=== PATIENT | male | born 1970 | race African-American/Black ===

== ENCOUNTER 2020-10-16 13:40 | Outpatient (CLI) | payer OTHER, SELFPAY ==
[2020-10-16 14:52] LABS: Alanine Aminotransferase 20 U/L (4-50); Albumin Level 4.2 g/dL (3.5-5.1); Alkaline Phosphatase 85 U/L (38-126); Anion Gap 5 mmol/L (8-16); Aspartate Amino Transferase 21 U/L (17-59); Bilirubin,Total 0.4 mg/dL (0.2-1.3); Blood Urea Nitrogen 16 mg/dL (9-20); Calcium 9.1 mg/dL (8.4-10.2); Carbon Dioxide 37 mmol/L (22-30); Chloride 94 mmol/L (98-107); Estimated Glomerular Filt Rate > 60; Glucose 435 mg/dL (75-110); Potassium 3.8 mmol/L (3.4-5.0); Sodium 136 mmol/L (137-145)
== END 2020-10-16 13:41 | disposition home or self-care (01) ==
PROVIDERS: PCP Family Medicine
DX: M96.1 Postlaminectomy syndrome, not elsewhere classified (principal); M50.30 Other cervical disc degeneration, unspecified cervical region; M47.812 Spondylosis without myelopathy or radiculopathy, cervical region; M48.03 Spinal stenosis, cervicothoracic region; M50.20 Other cervical disc displacement, unspecified cervical region; M25.562 Pain in left knee; M51.26 Other intervertebral disc displacement, lumbar region; M54.16 Radiculopathy, lumbar region; M48.02 Spinal stenosis, cervical region
CPT/HCPCS: 36415; 80053

== ENCOUNTER 2021-10-26 16:24 | Emergency (ER) | payer OTHER, SELFPAY ==
[2021-10-26 16:39] VITALS: BP 122/72; PULSE 117; RESP 18; TEMP 37.4; O2SAT 98
--- NOTE | 2021-10-26 16:47 | ED.FALL ---
HPI - Fall General Chief Complaint: Fall Stated Complaint: fell Time Seen by Provider: 10/26/21 16:47 Source: patient, RN notes reviewed and old records reviewed Mode of arrival: ambulatory Limitations: no limitations History of Present Illness HPI Narrative: 50-year-old male presents to the [facility] with complaints of slip and fall, hitting head, amnesia to incident, blurry vision. Patient states that he was at a store when he was walking out and slipped on ice and fell backwards hitting head. States he does not remember the incident, states that the only thing he remembers is someone waking him up and asking if he was okay, helped him to his feet. States the incident occurred about 1300 today. 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 Drove himself to the [facility] with complaints of blurry vision, posterior head pain, neck pain, cervical midline tenderness, right flank and right lateral rib pain. Walks with a slow but normal gait. Denies any numbness or tingling in extremities. No saddle anesthesia. No loss or retention of bowel or bladder. Slow to respond when asked questions but speech is normal. Answers are appropriate. In triage, c-collar applied due to midline tenderness. Reports being out of his pain medication, has an appointment with his pain management doctor next week Related Data Home Medications Medication Instructions Recorded Confirmed amlodipine 08/15/19 atorvastatin 08/15/19 bupropion HCl mg PO 08/15/19 fluoxetine mg 08/15/19 hydrocodone-acetaminophen tablet 08/15/19 hydroxyzine HCl 08/15/19 losartan-hydrochlorothiazide tablet 08/15/19 cyclobenzaprine 10 mg PO HS PRN 10/26/21 10/26/21 empagliflozin [Jardiance] 25 mg PO DAILY 10/26/21 10/26/21 gabapentin 300 mg PO HS 10/26/21 10/26/21 trazodone 100 mg PO BID 10/26/21 10/26/21 Allergies Allergy/AdvReac Type Severity Reaction Status Date / Time No Known Allergies Allergy Unknown Verified 10/26/21 18:57 Review of Systems Review of Systems: All systems reviewed & are unremarkable except as noted in HPI and below Constitutional: Constitutional: Reports no additional constitutional complaints, Denies chills and Denies fever(s) Eyes: Eyes: Reports no additional eye complaints ENT: Reports system reviewed and no additional complaints, except as documented Cardiovascular: Cardiovascular: Reports no additional cardiovascular complaints and Denies chest pain Respiratory: Respiratory: Reports no additional respiratory complaints, Denies cough and Denies dyspnea Gastrointestinal: Gastrointestinal: Reports no additional gastrointestinal complaints, Denies abdominal pain, Denies diarrhea, Denies nausea and Denies vomiting Musculoskeletal: Musculoskeletal: Reports as per HPI, Reports back pain (right ribs and flank), Reports myalgias, Reports neck pain, Denies numbness and Reports stiffness Integumentary/Breasts: Skin/Breast: Reports system reviewed and no additional complaints, except as docu Neurologic: Reports as per HPI, Denies dizziness, Reports headache(s), Denies focal weakness, Denies numbness and Denies weakness Comments: Blurry vision Psychiatric: Psychiatric: Reports no additional psychiatric complaints Allergic/Immunologic: Allergic/Immunologic: Reports no additional allergic/immunologic complaints PMFSH Past Medical History Medical History Anxiety and depression Chronic pain See pain mgt High cholesterol History of high blood pressure Family History Family History Father Family history of elevated blood lipids Family history of diabetes mellitus in first degree relative Other Diabetes mellitus Hypertension Social History Social History Smoking status: Current every day smoker Alcohol intake: never Substance use type: marijuana Gender i
== END 2021-10-26 17:01 | disposition short-term general hospital (02) ==
PROVIDERS: Emergency Provider Nurse Practitioner
DX: R10.9 Unspecified abdominal pain (principal); M54.2 Cervicalgia; R51.9 Headache, unspecified; W00.0XXA Fall on same level due to ice and snow, initial encounter; F17.200 Nicotine dependence, unspecified, uncomplicated; F12.90 Cannabis use, unspecified, uncomplicated; E78.00 Pure hypercholesterolemia, unspecified; I10 Essential (primary) hypertension; F32.A Depression, unspecified
CPT/HCPCS: 99215; G0463; L0140

== ENCOUNTER 2021-10-26 17:23 | Emergency (ER) | payer OTHER, SELFPAY ==
[2021-10-26] VITALS (20 sets, daily range): BP systolic 103–139; BP diastolic 66–123; PULSE 103; RESP 16; TEMP 36.3; O2SAT 97–100
--- NOTE | ~2021-10-26 | CT_ITS ---
EXAMINATION: CT lumbar spine wo [facility] EXAM DATE: 10/26/2021 20:46 INDICATION: Trauma. Back pain. Fall. TECHNIQUE: Spiral CT of the lumbar spine was performed without contrast. Axial, coronal and sagittal images lumbar spine were reviewed. The dose-length product (DLP) for this examination was 447.10 mG y-cm. The exposure was tailored according to patient size (auto mA exposure control), and iterative reconstruction (ASIR) was used as additional dose reduction technique. Correlation is made to x-ray same date. FINDINGS: T10 through sacroiliac joints were imaged. Minimal anterior wedged appearance T10-L1. There are no acute fractures identified. No paraspinal abnormality. Mild to moderate lower lumbar facet arthropathy, mild lumbar disc disease. No spondylolysis. IMPRESSION: No acute lumbar or lower thoracic fracture. Reviewed, dictated and finalized at location . OMER SALES ADVISOR
--- NOTE | ~2021-10-26 | XR_ITS ---
EXAMINATION: XR hip RT 2V w AP pelvis EXAM DATE: 10/26/2021 19:51 INDICATION: Fall, right hip pain, initial encounter. TECHNIQUE: Right hip frontal, 'frog leg' projections for interpretation. Frontal projection pelvis. There is no prior study for comparison. FINDINGS: Smooth right hip femoral head contour, no radiographic evidence of avascular necrosis. The re is mild to moderate symmetric bilateral hip primary osteoarthritis. There are no acute fractures o r dislocations identified. There is no subcutaneous gas. The soft tissue is unremarkable. There a re no radiopaque foreign bodies. IMPRESSION: 1. Pelvis, right hip exam without acute osseous findings. Reviewed, dictated and finalized at location G. CINE TECH
--- NOTE | ~2021-10-26 | XR_ITS ---
EXAMINATION: XR thoracic spine 3V EXAM DATE: 10/26/2021 19:51 INDICATION: Fall Today At 1330 Rt Hip Pain Radiates Low And Up Back. TECHNIQUE: Frontal and lateral projections of the thoracic spine as well as lateral swimmers projecti on of the upper thoracic spine for interpretation. Comparison is made to prior examination from 014. FINDINGS: There are no acute fractures identified. The vertebral bodies are aligned in the AP dimens ion. Vertebral body and disc heights are well-maintained. Mild lower thoracic disc disease. Paraspina l soft tissue is unremarkable. IMPRESSION: No acute Thoracic findings. Reviewed, dictated and finalized at location G. CAL SOCIAL CONSULTANT IMPRESSION: No acute Thoracic findings.
--- NOTE | ~2021-10-26 | CT_ITS ---
EXAMINATION: CT brain wo con, CT cervical spine wo con EXAM DATE: 10/26/2021 19:40 (accession [id number]), 10/26/2021 19:41 (accession [id number]) INDICATION: Trauma, head injury. Fell on ice. TECHNIQUE: Spiral CT of the head was performed without contrast. Axial, coronal and sagittal images were reviewed. Spiral CT of the cervical spine was performed without contrast. Axial images were rev iewed. Coronal and sagittal reformatted images were also reviewed. The dose-length product (DLP) fo r this examination was 605.33 (accession [id number]), 424.31 (accession [id number]) mGy-cm. The exposure was tailored according to patient size, and iterative reconstruction (ASIR) was used as additional dose reduction technique. Comparison is made to prior examination from 01/14/2015. FINDINGS: HEAD CT: There is no acute intraparenchymal hemorrhage. No evidence of intraparenchymal brain mass l esion. No evidence of acute infarction. There is no mass effect or midline shift. There is no obstru ctive hydrocephalus suspected. There are no extra-axial collections. There are no acute calvarial f ractures. The orbits are unremarkable. Left posterior scalp swelling. Mild mucoperiosteal thickenin g. CERVICAL CT: There is mild reversal of the normal cervical lordosis which may be positional or spasm. There is no evidence of acute cervical fracture. The odontoid process is intact. Pre-dens space is normal. Prevertebral soft tissue is normal. There are no soft tissue abnormalities identified. Th ere is no disc space widening or traumatic vertebral body subluxation suspected. Anterior and interb javier fusion C5-7, intact. Moderate disc disease at C4-5. There is severe right neural foraminal stenos is at C5-6, moderate right at C4-5, otherwise only mild to moderate neural foraminal stenosis. A det britt level by level evaluation of spondylosis can be added as addendum if requested. IMPRESSION: 1. No acute intracranial findings or cervical fracture. 2. Reversal of normal cervical lordosis. 3. Intact cervical fusion C5-7. 4. Small left posterior scalp contusion. Reviewed, dictated and finalized at location G. DRY HOUSEKEEPING AIDE IMPRESSION: 1. No acute intracranial findings or cervical fracture. 2. Reversal of normal cervical lordosis. 3. Intact cervical fusion C5-7. 4. Small left posterior scalp contusion.
--- NOTE | ~2021-10-26 | XR_ITS ---
EXAMINATION: XR lumbar spine 2-3V EXAM DATE: 10/26/2021 19:51 INDICATION: Fall Today At 1330 Rt Hip Pain Radiates Low And Up Back TECHNIQUE: Lumber spine frontal, lateral, lateral L5-S1 projections for interpretation. There is no prior study for comparison. FINDINGS: Minimal anteriorly wedged shape to T11, T12 and L1 without acute fracture line identified. Mild lumbar facet arthropathy. Sacrum, sacroiliac joints, sacral arcuate lines are intact. Paraspina l soft tissue is unremarkable. IMPRESSION: Minimal anterior wedge shape T11-L1 without acute fracture line identified. Can't exclud e acute component to one of these. Reviewed, dictated and finalized at location G. UATE FELLOW IMPRESSION: Minimal anterior wedge shape T11-L1 without acute fracture line id entified. Can't exclude acute component to one of these.
[2021-10-26] MEDS: diazePAM INJ (*CRX) 10 MG/2 ML SYRINGE 5 MG IV PUSH (20:05)
[2021-10-26] MEDS: KETOROLAC 30 MG/ML VIAL (*BKC) IV PUSH (20:06)
[2021-10-26 20:10] LABS: Glucose Point of Care 285 mg/dl (65-105)
--- NOTE | 2021-10-26 20:21 | PC.NURSE ---
pt reports he felt like BS low and requesting food. BS checked
--- NOTE | 2021-10-26 20:54 | ED.FALL ---
HPI - Fall General Chief Complaint: Fall Stated Complaint: fall on ice Time Seen by Provider: 10/26/21 19:05 History of Present Illness HPI Narrative: Patient is a 50-year-old male who is referred here from urgent care who presents with body pain status post slip and fall. Patient reports he slipped on some ice falling backwards. He struck his head. Reports he lost consciousness and woke to some by asking him if he is okay. He reports he has aching in his right hip as well as diffusely along his back and neck. Has history of a cervical fusion in the past. Denies upper or lower extremity numbness or tingling. He has been ambulatory since the fall without issue. Denies any alleviating factors. No change in vision or hearing. No nausea or vomiting. No headache. Patient did have a C-spine immobilized. Related Data Home Medications Medication Instructions Recorded Confirmed amlodipine 10 mg PO DAILY 08/15/19 10/26/21 atorvastatin 40 mg PO DAILY 08/15/19 10/26/21 bupropion HCl 150 mg PO DAILY 08/15/19 10/26/21 fluoxetine 20 mg PO DAILY 08/15/19 10/26/21 hydrocodone-acetaminophen 10 tablet PO Q4-6H PRN 08/15/19 10/26/21 hydroxyzine HCl 25 mg PO TID 08/15/19 10/26/21 losartan-hydrochlorothiazide 100 tablet PO DAILY 08/15/19 10/26/21 cyclobenzaprine 10 mg PO HS PRN 10/26/21 10/26/21 empagliflozin [Jardiance] 25 mg PO DAILY 10/26/21 10/26/21 gabapentin 300 mg PO HS 10/26/21 10/26/21 trazodone 100 mg PO BID 10/26/21 10/26/21 Allergies Allergy/AdvReac Type Severity Reaction Status Date / Time No Known Allergies Allergy Unknown Verified 10/26/21 18:57 Review of Systems Review of Systems: All systems reviewed & are unremarkable except as noted in HPI and below Eyes: Eyes: Denies change in vision and Denies photophobia Cardiovascular: Cardiovascular: Denies chest pain, Denies rapid heart rate and Denies radiating jaw, neck or arm pain Respiratory: Respiratory: Denies cough and Denies dyspnea Gastrointestinal: Gastrointestinal: Denies abdominal pain, Denies nausea and Denies vomiting Musculoskeletal: Musculoskeletal: Reports back pain, Reports arthralgias, Denies joint swelling and Reports muscle cramps Neurologic: Reports syncope, Denies headache(s), Denies focal weakness and Denies numbness PMFSH Past Medical History Medical History (Updated 10/26/21 @ 21:47 by Antonoi Flowers MD) Anxiety and depression Chronic pain See pain mgt High cholesterol History of high blood pressure Surgical History Surgical History (Updated 10/26/21 @ 20:56 by Antonio Flowers MD) Hx of fusion of cervical spine Family History Family History Father Family history of elevated blood lipids Family history of diabetes mellitus in first degree relative Other Diabetes mellitus Hypertension Social History Social History Smoking status: Current every day smoker Alcohol intake: never Substance use type: marijuana Gender identity (if verbalized by the patient): Male Exam Narrative: GENERAL: Well-appearing, well-nourished, and in no acute distress. HEAD: Normocephalic, atraumatic. NECK: Supple. C-Spine immobilized. CHEST: Clear to auscultation. No respiratory distress. HEART: Regular rate and rhythm. Normal peripheral pulses. ABDOMEN: Soft, nontender, nondistended. Back: Diffuse tenderness in paraspinal musculature and along the midline of the T and L-spine. No one point that is more tender than the other. No abrasions or contusions. EXTREMITIES: Normal range of motion. No edema. SKIN: Warm, dry, no rash. NEURO: Patient intact with gross palpation of lower and upper extremities. Clear speech without expressive aphasia. No facial droop. Alert and oriented x3. Course Course Emergency Course: Toradol and Valium for pain. Imaging unremarkable. Discharge home. Vital Signs Vital signs: Vital Signs Temperature
== END 2021-10-26 22:36 | disposition home or self-care (01) ==
PROVIDERS: Emergency Provider Emergency Medicine; PCP Physician Assistant
DX: S06.0X9A Concussion with loss of consciousness of unspecified duration, initial encounter (principal); S39.012A Strain of muscle, fascia and tendon of lower back, initial encounter; F41.9 Anxiety disorder, unspecified; F32.A Depression, unspecified; G89.29 Other chronic pain; E78.00 Pure hypercholesterolemia, unspecified; I10 Essential (primary) hypertension; Z98.1 Arthrodesis status; F17.200 Nicotine dependence, unspecified, uncomplicated; Z79.84 Long term (current) use of oral hypoglycemic drugs; W00.0XXA Fall on same level due to ice and snow, initial encounter
CPT/HCPCS: 70450; 72072; 72100; 72125; 72131; 73502; 82948; 96374; 96375; 99284; J1885; J3360

== ENCOUNTER 2022-02-18 11:15 | Outpatient (RCR) | payer OTHER, SELFPAY ==
--- NOTE | 2022-01-21 13:57 | PTOPEVAL ---
PHYSICAL THERAPY EVALUATION AND PLAN OF CARE Thank you for referring Francisco Garcia to [facility].? The patient is scheduled to be seen for therapy? 2x/week for 4 weeks. Please review, sign, date and return this plan of care MIKEL. I agree with and certify that the following plan of care is medically necessary. Referring Physician Date Referring Provider: Danna Walters, PA Diagnosis chronic neck and upper back pain Onset 10/26/21 Subjective Information Patient is here today with Query Text:As Reported By Patient/ worsening neck and upper back Family pain. he does have a history of cervical fusion (C6-7). He fell on some ice on 10/26/21 and fell back on his back and hit his head. He states that he does have previous intermittent chronic pain throughout his body. States he gets some dizziness that occurs when walking, stair climbing. he did get a concussion from the fall. He also gets headaches, 2-3 short headaches a day. States constant pain in left arm and fingers. Self Report Pain Assessment Spine, Cervical Reported Pain Level 8 Pain Description Tightness Pain Score Pain Score 8: Self Report Interventions Used Interventions Used By Clinicians Exercise,Manual Therapy Techniques Pain Relief Interventions Used By Inactivity/Rest Patient Cervical and Lumbar ROM Cervical ROM Cervical Flexion (0-60) 45 Query Text:Active in Degrees Cervical Extension (0-70) 45 Query Text:Active in Degrees Cervical Rotation Right (0-90) 45 Query Text:Active in Degrees Cervical Rotation Left (0-90) 35 Query Text:Active in Degrees Upper Extremity Range of Motion Gross Upper Extremity Range of Motion generally WFL with decreased Comments ROM and end range due to decreased thoracic extension Upper Extremity Muscle Strength Testing Scapular/Shoulder Bilateral Scapular Retraction - Middle Trapezius 3- Fair - Scapular Retraction - Lower Trapezius 3- Fair - Shoulder Flexion Strength 3+ Fair + Shoulder Abduction Strength 3+ Fair + Shoulder Medial Rotation Strength 3+ Fair + Shoulder Lateral Rotation Strength 3+ Fair + Posture Head/C-Spine Posture Neutral Position Thoracic Spine Posture Flattened Lumbar Spine Pos
--- NOTE | 2022-02-20 09:11 | PCPTNOTE ---
Patient called & cancelled scheduled appointment this date due to oversleeping.
--- NOTE | 2022-02-27 15:54 | PCPTNOTE ---
Patient did not show up for scheduled appointment this date.
--- NOTE | 2022-03-19 12:47 | PCPTNOTE ---
Patient called & cancelled scheduled appointment this date due to running late at his doctor's appt.
--- NOTE | 2022-04-01 09:58 | PCPTNOTE ---
Attending Provider: Danna Walters, PA Patient:Francisco Garcia Date of :1970 Patient has not returned for any further treatments since 02/18/2022, therefore he will be discharged at this time. Patient?s initial visit was on 01/21/2022nd had a total of 8visits. The goals have been (met, not met, partially met). Thank you for referring this patient to [facility]. Please review, sign, date and return this discharge summary MIKEL. I have been updated about the patient's current status and I agree with discharge from the above service at this time. Referring Physician Date
== END 2022-04-02 08:15 | disposition home or self-care (01) ==
LOC: ANHPT 11:15
PROVIDERS: PCP Physician Assistant; Referring Provider Physician Assistant; Visit Provider Physician Assistant
DX: G89.29 Other chronic pain (principal)
CPT/HCPCS: 97014; 97110; 97112; 97140; 97162; G0283

== ENCOUNTER 2022-10-15 08:12 | Observation (INO) | payer OTHER, SELFPAY ==
[2022-10-15] VITALS (27 sets, daily range): BP systolic 103–134; BP diastolic 63–83; PULSE 100–112; RESP 13–18; TEMP 36.3–37.1; O2SAT 90–99; BMI 27.3
--- NOTE | 2022-10-15 | ECHO_ITS ---
Patient Info Name: Francisco Garcia Age: 51 years : 1970 Gender: Male Ht: 65 in Wt: 164 lbs BSA: 1.86 m2 HR: 100 bpm BP: 121 / 78 mmHg Heart Rhythm: Sinus Rhythm Exam Date: 10/15/2022 2:40 PM Exam Location: [facility] Patient Status: Outpatient Admit Date: 10/15/2022 Staff Ordering Physician: Ene Morocho PA-C Extracorporeal Circulation Specialist: Navid Quick, MARYLOU, RT Attending Provider: Juan Diego Lai MD Referring Physician: Rashawn BRUNO; Exam Type: CA echo dop color flow w con Study Info Indications R07.9 - Chest pain, unspecified R55 - Syncope and collapse Complete two-dimensional, color flow and Doppler transthoracic echocardiogram is performed with contrast to opacify the left ventricle and to improve the deliniation of the left ventricle endocardial borders. Summary 1. Left ventricular chamber dimension is normal. 2. Left ventricular systolic function is hyperdynamic, estimated at >70%. 3. Right ventricular systolic function is normal. 4. No significant valvular disease. Left Ventricle Left ventricular chamber dimension is normal. Left ventricular systolic function is hyperdynamic, estimated at >70%. Right Ventricle Right ventricular chamber dimension is normal. Right ventricular systolic function is normal. Left Atria Left atrial chamber dimension is normal. Right Atria Right atrial chamber dimension is normal. Atrial Septum Intact interatrial septum visualized by color flow imaging. Aortic Valve The aortic valve is not well visualized. There is no aortic valve stenosis. There is no aortic valve regurgitation. Pulmonic Valve The pulmonic valve is not well visualized. Mitral Valve The mitral valve has normal leaflets. There is no mitral valve stenosis. There is trace mitral valve regurgitation. Tricuspid Valve There is no tricuspid valve regurgitation. Pericardium/Pleural There is no pericardial effusion. Inferior Vena Cava Normal inferior vena cava with <50% collapse upon inspiration consistent with elevated right atrial pressure, 8 mmHg. Aorta The aortic root size at the sinus of Valsalva is normal. Tricuspid Valve Name Value Normal Estimated PAP/RSVP RA Pressure 8 mmHg <=5 Report Signatures
--- NOTE | ~2022-10-15 | CT_ITS ---
EXAMINATION: CT brain wo con DATE: 10/15/2022 09:13 INDICATION: Syncope. TECHNIQUE: Computed tomography (CT) of the head was performed without intravenous contrast. The mA wa s adjusted according to patient size. Iterative reconstruction technique was employed. The dose-lengt h product was 433.36 mGy-cm. COMPARISON: Head CT 10/26/2021 FINDINGS: There is no intracranial hemorrhage, acute infarction, or abnormal intracranial mass lesion . The ventricles are normal in size. There is mild mucosal thickening in the paranasal sinuses. The m astoid air cells are normal. The orbits are normal. There is a left posterior scalp hematoma. IMPRESSION: 1. Normal brain. Reviewed, dictated and finalized at location A. RTMENTAL BUYER IMPRESSION: 1. Normal brain.
--- NOTE | ~2022-10-15 | CT_ITS ---
EXAMINATION: CT sinus wo con DATE: 10/16/2022 13:29 INDICATION: Head injury TECHNIQUE: Computed tomography (CT) of the paranasal sinuses was performed without intravenous contra st. The dose-length product (DLP) was 293.24 mGy-cm. Iterative reconstruction was used. COMPARISON: 10/15/2022 FINDINGS: The right frontal sinus is not pneumatized There is otherwise normal development and pneuma tization of the paranasal sinuses. There is a 2.1 cm polyp or mucous retention cyst of the left maxil olman sinus. There is mild mucosal thickening of the ethmoidal air cells on the right. The frontal, sp henoid, ethmoid, and maxillary sinuses are otherwise clear. The bilateral ostiomeatal complexes are p atent. Visualized soft tissues are unremarkable. No facial fracture is identified. The globes and orb its are normal. IMPRESSION: 1. Mild sinus disease. Reviewed, dictated and finalized at location B. H CUTTING MACHINE OPERATOR IMPRESSION: 1. Mild sinus disease.
--- NOTE | ~2022-10-15 | XR_ITS ---
Clinical Indication: Chest pain PA and lateral views of the chest: Comparison: 09/28/2009 Findings: The lungs are clear, without evidence of focal consolidation or pleural effusion. Cardiome diastinal silhouette is within normal limits. Cervical spine fixation hardware noted. Impression: Clear lungs. Reviewed, dictated and finalized at [facility]. PENDENT CONSULTANT Impression: Clear lungs.
--- NOTE | ~2022-10-15 | CT_ITS ---
EXAMINATION: CT cervical spine wo con DATE: 10/15/2022 09:13 INDICATION: Head injury. TECHNIQUE: Computed tomography (CT) of the cervical spine was performed without intravenous contrast. Automated exposure control and iterative reconstruction technique were employed. The dose-length pro duct was 433.36 mGy-cm. COMPARISON: CT cervical spine 10/26/2021 FINDINGS: There is kyphosis of cervical spine. Vertebral body heights are normal. There are changes o f anterior fusion procedure from C5 to C7 with interbody devices and anterior plate and screws. There is bridging interbody bone at C6-C7, but not at C5-C6. There is moderately decreased disc height at C4-C5 and severely decreased disc height at C7-T1. The following disc levels are specifically discuss ed: C2-C3: There is mild right and severe left uncovertebral joint osteoarthritis. There is severe bilate ral facet joint osteoarthritis. There is mild bilateral neural foraminal stenosis. There is mild cent ral canal stenosis. C3-C4: There is mild bilateral uncovertebral joint osteoarthritis. There is mild bilateral facet join t osteoarthritis. There is no neural foraminal stenosis. There is mild central canal stenosis. C4-C5: There is severe bilateral uncovertebral joint osteoarthritis. There is mild bilateral facet la int osteoarthritis. There is moderate right and mild left neural foraminal stenosis. There is mild ce ntral canal stenosis. C5-C6: There is severe bilateral uncovertebral joint osteoarthritis. There is no facet joint osteoart hritis. There is moderate right neural foraminal stenosis. There is no central canal stenosis. C6-C7: There is mild right and moderate left uncovertebral joint hypertrophy. There is mild bilateral facet joint hypertrophy. There is no neural foraminal stenosis. There is no central canal stenosis. C7-T1: There is mild bilateral uncovertebral joint osteoarthritis. There is severe bilateral facet la int osteoarthritis. There is mild bilateral neural foraminal stenosis. There is no central canal sten osis. IMPRESSION: 1. No fracture. 2. Moderate cervical spondylosis. 3. Anterior fusion procedure from C5 to C7. Reviewed, dictated and finalized at location A. CTOR TREASURER
--- NOTE | 2022-10-15 08:14 | ECG_ITS ---
Measurements Intervals [place] Rate: 110 P: 72 NC: 171 QRS: 18 QRSD: 83 T: 62 QT: 349 QTc: 473 Interpretive Statements SINUS TACHYCARDIA ABNORMAL RHYTHM ECG NO PREVIOUS ECG AVAILABLE FOR COMPARISON Electronically Signed On 10-15-2022 14:50:01 STUD DRIVER by Ricky Desai M.D.
[2022-10-15 08:33] LABS: Basophils Percent Auto 0.6 % (0.2-1.2); Eosinophils Absolute Auto 0.1 K/mm3 (0-0.3); Eosinophils Percent Auto 1.4 % (0-4.4); Hematocrit 43.2 % (42.0-52.0); Hemoglobin 15.1 g/dL (14.0-18.0); Immature Granulocyte Absolute 0.01 K/mm3 (0.00-0.031); Immature Granulocyte Percent A 0.1 % (0-0.5); Lymphocytes Absolute Auto 2.09 K/mm3 (0.9-3.2); Lymphocytes Percent Auto 28.7 % (18.3-44.2); Mean Corpuscular Volume 85.7 fl (80-100); Mean Platelet Volume 9.1 fl (7.4-10.4); Monocytes Absolute Auto 0.6 K/mm3 (0.1-0.6); Monocytes Percent Auto 8.3 % (2.6-8.5); Neutrophils Absolute Auto 4.4 K/mm3 (1.3-6.7); Neutrophils Percent Auto 60.9 % (45.5-73.1); Platelet Count Result 374 k/mm3 (150-375); Red Blood Count 5.04 M/mm3 (4.6-6.20); Red Cell Distribution Width 13.6 % (11.5-14.5); White Blood Count 7.3 K/mm3 (4.5-10.0)
[2022-10-15] MEDS: LACTATED RINGERS 1,000 ML 999 ML IV CONT (08:40)
[2022-10-15 08:47] LABS: Alanine Aminotransferase 37 U/L (6-50); Albumin Level 4.9 g/dL (3.5-5.1); Alkaline Phosphatase 81 U/L (38-126); Anion Gap 21 mmol/L (8-16); Aspartate Amino Transferase 76 U/L (17-59); Bilirubin,Total 0.7 mg/dL (0.2-1.3); Blood Urea Nitrogen 20 mg/dL (9-20); Calcium 9.1 mg/dL (8.4-10.2); Carbon Dioxide 18 mmol/L (22-30); Chloride 87 mmol/L (98-107); Estimated CRCL calculation 52 ml/min; Estimated Glomerular Filt Rate > 60; Glucose 111 mg/dL (65-110); Potassium 2.8 mmol/L (3.4-5.0); Sodium 126 mmol/L (137-145)
[2022-10-15 08:52] LABS: Ethanol 86 mg/dL (<10)
--- NOTE | 2022-10-15 08:54 | ED.SYNCOPE ---
HPI - Syncope General Chief Complaint: Syncope Stated Complaint: syncope Time Seen by Provider: 10/15/22 08:15 History of Present Illness HPI narrative: Per EMS, patient was at the police station when he started stating that he was having chest pain, nausea and vomiting, and then passed out and hit his head. Patient states that last he remembered was feeling nauseous. He states that he has had similar episodes in the past, unsure of anything was ever found for the cause, however he does admit that he had a couple of beers this morning, and that he then felt hungry. Related Data Home Medications Medication Instructions Recorded Confirmed amlodipine 5 mg tablet 10 mg PO DAILY 08/15/19 10/26/21 atorvastatin 40 mg tablet 40 mg PO DAILY 08/15/19 10/26/21 bupropion HCl 150 mg 24 hr tablet, 150 mg PO DAILY 08/15/19 10/26/21 extended release fluoxetine 20 mg capsule 20 mg PO DAILY 08/15/19 10/26/21 hydrocodone 10 mg-acetaminophen 10 tablet PO Q4-6H PRN Pain 08/15/19 10/26/21 325 mg tablet hydroxyzine HCl 25 mg tablet 25 mg PO TID 08/15/19 10/26/21 losartan 100 100 tablet PO DAILY 08/15/19 10/26/21 mg-hydrochlorothiazide 12.5 mg tablet cyclobenzaprine 10 mg tablet 10 mg PO HS PRN Muscle Pain 10/26/21 10/26/21 empagliflozin 25 mg tablet 25 mg PO DAILY 10/26/21 10/26/21 (Jardiance) gabapentin 300 mg capsule 300 mg PO HS 10/26/21 10/26/21 trazodone 100 mg tablet 100 mg PO BID 10/26/21 10/26/21 Allergies Allergy/AdvReac Type Severity Reaction Status Date / Time No Known Allergies Allergy Unknown Verified 10/26/21 18:57 Review of Systems Review of Systems: CONST: No fever. HEENT: Trauma to face C/V: chest pain RESP: No cough GI: Reports abdominal pain, nausea, vomiting : No dysuria. M/S: No joint pain. SKIN: Tiny abrasion to nose NEURO: [No headache or focal numbness or weakness] PSYCH: [No depression] PMFSH Past Medical History Medical History Anxiety and depression Chronic pain See pain mgt High cholesterol History of high blood pressure Surgical History Surgical History Hx of fusion of cervical spine Family History Family History Father Family history of elevated blood lipids Family history of diabetes mellitus in first degree relative Other Diabetes mellitus Hypertension Social History Social History (Updated 10/15/22 @ 08:57 by Camilla De MD) Smoking status: Current every day smoker Alcohol intake: current Substance use type: marijuana Gender identity (if verbalized by the patient): Male Exam Narrative: EXAMINATION OF ORGAN SYSTEMS/BODY AREAS: Constitutional: Vital signs per nursing GENERAL:[No acute distress] HEAD: Tiny abrasion bridge of nose EYES: EOMI, conjunctiva normal ENT: Tiny abrasion to bridge of nose, no pain with movement of jaw LUNGS: Nonlabored breathing. HEART: Tachycardic ABD: [Soft], [nontender to palpation] EXT: Normal range of motion SKIN: Tiny nose abrasion noted NEURO: [Alert and oriented x 3. No gross focal sensory or strength deficits.] PSYCH: Very minimally intoxicated Course Vital Signs Vital signs: Vital Signs Temperature 98.5 F 10/15/22 08:14 Pulse Rate 110 H 10/15/22 08:14 Respiratory Rate 18 10/15/22 08:14 Blood Pressure 123/81 10/15/22 08:14 Pulse Oximetry 99 10/15/22 08:14 Oxygen Delivery Room Air 10/15/22 08:14 Temperature 98.5 F 10/15/22 08:14 Pulse Rate 105 H 10/15/22 09:15 Respiratory Rate 18 10/15/22 09:15 Blood Pressure 116/76 10/15/22 08:45 Pulse Oximetry 93 10/15/22 09:15 Oxygen Delivery Room Air 10/15/22 08:14 MDM - Syncope MDM Narrative Medical decision making narrative: 51-year-old male presenting after syncopal episode with fall, vital signs notable for mild tachycardia, on exam he has a small abrasion to the bridg
[2022-10-15 09:06] LABS: Magnesium 1.9 mg/dL (1.6-2.3)
[2022-10-15 09:19] LABS: Troponin I < 0.012 ng/mL (0.000-0.034)
[2022-10-15] MEDS: POTASSIUM CHLORIDE 20 MEQ PACKET (FOR LIQUID) 40 MEQ PO (09:22)
[2022-10-15] MEDS: SODIUM CHLORIDE 0.9% IV 1,000 ML 100 ML IV CONT (09:56)
[2022-10-15] MEDS: POTASSIUM CHLORIDE INJ 40 MEQ in SODIUM CHLORIDE 0.9% IV 500 ML 130 MEQ IVPB (09:56)
--- NOTE | 2022-10-15 10:05 | PC.NURSE ---
Potassium drip slowed down to decrease burning at insertion site.
[2022-10-15 10:10] LABS: Influenza A QL RT-PCR Negative (Negative); Influenza B QL RT-PCR Negative (Negative); SARS-CoV-2 RNA PCR Negative
--- NOTE | 2022-10-15 10:36 | PC.NURSE ---
[facility]BO DR AMADO TYLENOL 1GM PO
[2022-10-15] MEDS: ACETAMINOPHEN 500 MG TABLET 1000 MG PO (10:43)
[2022-10-15 11:29] LABS: D Dimer < 0.27 ug/mL (<0.48)
--- NOTE | 2022-10-15 11:49 | PM.IMHP ---
H&P: HPI History of Present Illness Date/Time: 10/15/22 11:49 Chief Complaint: Syncope Narrative: Date of service: 10/15/2022 Francisco Garcia is a 51-year-old male with a history of type 2 diabetes mellitus, hypertension, hyperlipidemia, anxiety, depression, and chronic alcohol use who presented to department on 10/15/2022 from [facility] police station after a syncopal episode. The patient states that this morning around 7:30 a.m. he woke up and was making breakfast and feeling in his usual state of health. He states he was having no issues but states that his neighbor was upset that he was ?walking too hard? and called the police. The patient was taken to the police station and was paying his marshall to be released when he developed nausea, subsequently throughout, and then ?blacked out.? He is not sure what happened but he came to immediately and recalls being held up by a police department secretary. He believes that he fell forward and hit his head because his nose is hurting and he has a small abrasion on the bridge of his nose. He also states that his lip feels swollen. He reports he had 1 additional episode of emesis after this and then was taken to the ED for evaluation. Upon presentation to the ED, his heart rate was 110, BP 123/81, additional vital signs were stable, CBC unremarkable, sodium 126, potassium 2.8, chloride 87, CO2 18, blood sugar 111, mag 1.9, alcohol level 86, troponin negative, EKG showed sinus tachycardia, head CT showed normal brain, and cervical spine CT showed no acute findings. At the time of my evaluation, the patient states that he is feeling better. He does endorse facial pain, pain in his upper back and neck which all occurred after his syncopal episode. He endorses chest pressure and feels that his chest is ?hard.? States that pain has radiated to his back and shoulder but this pain has resolved after receiving Tylenol. Patient stating that his pain is worse if he moves his arm and occasionally noticeable if he takes a deep breath. He feels that his heart has been racing intermittently. He felt dizzy today when ambulating to the bathroom. He denies any recent urinary symptoms. He has not had diarrhea. Reports that he has been eating and drinking well and does not feel that is dehydrated. He endorses drinking two 24 oz beers last night around 11:30 p.m. last night. He did not feel intoxicated today. He does endorse increased stress recently due to difficulty with his neighbors. Reports his blood sugars have been well controlled and he just had an appointment with his PCP yesterday. Review of Systems Review of Systems: All systems reviewed & are unremarkable except as noted in HPI and below PMFSH Past Medical History Medical History (Updated 10/15/22 @ 11:51 by Ene Morocho PA-C) Anxiety and depression Chronic pain Due to history of cervical spine fusion, previously seeing pain management High cholesterol History of high blood pressure Type 2 diabetes mellitus Surgical History Surgical History (Updated 10/15/22 @ 12:43 by Ene Morocho PA-C) History of appendectomy Hx of fusion of cervical spine Family History Family History Father Family history of elevated blood lipids Family history of diabetes mellitus in first degree relative Grandparent Cerebrovascular accident Other Diabetes mellitus Hypertension Social History Social History (Updated 10/15/22 @ 12:51 by Ene Morocho PA-C) Social History: Patient lives at home. He is independent with his daily activities. He designates his son, Joaquin, as his surrogate decision maker. He is a full code. His PCP is Danna De La Cruz PA-C Smoking packs per day: 0.25 Smoking cigarettes per day: 5.0 Smoking status: Current every day smoker Alcohol intake: current Drinks per week: 28 Alcohol use details: Two 24 oz beers every 2 days Substance use: never Substance
--- NOTE | 2022-10-15 11:55 | ADMGEN ---
This patient, Francisco Garcia, was admitted to [facility] Surg Room 315-01. Patient/family oriented to hospital policies and general routines including ID bracelet, bed and alarms, visiting hours, pain management, procedures, bathroom and other care routines, personal items, smoking policy, room service/diet, and visiting hours. Information on how to activate the Rapid Response Team has been discussed. Patient/Family are encouraged to report perceived risks to care and to ask questions if they do not understand what they are told or what they should do.
[2022-10-15 12:00] LABS: Troponin I < 0.012 ng/mL (0.000-0.034)
[2022-10-15 12:07] LABS: Lipase 95 U/L (23-300)
[2022-10-15 13:52] LABS: Thyroid Stimulating Hormone Reflex 0.465 uIU/mL (0.465-4.68)
[2022-10-15 14:26] LABS: Lactic Acid Reflex 1.4 mmol/L (0.7-2.0)
[2022-10-15] MEDS: PERFLUTREN LIPID MICROSPHERES 1.5 ML VIAL DILUTED TO 10 ML TOTAL VOLUME IV PUSH (14:58)
--- NOTE | 2022-10-15 14:58 | IVDEFINITY ---
Prior to administration of IV Definity the patient was educated on the risks and benefits of the imaging enhancing agent including potential adverse side effects. The patient verbalized understanding. Allergies were verified. No exclusion criteria were identified and at least one of the following inclusion criteria were met: 1) physician request, 2) patient technically difficult to image (per the [place] [employer] guidelines of two or more segments not discernable within the apical view), or 3) questionable left ventricular function. ?
[2022-10-15] MEDS: FOLIC ACID 1 MG TABLET PO (15:07)
[2022-10-15] MEDS: THIAMINE HCL 100 MG TABLET PO (15:07)
[2022-10-15] MEDS: PANTOPRAZOLE 40 MG TABLET PO (15:08)
[2022-10-15] MEDS: LACTATED RINGERS 1,000 ML 75 ML IV CONT (15:09)
[2022-10-15 15:48] LABS: Sodium 128 mmol/L (137-145)
[2022-10-15 16:35] LABS: Glucose Point of Care 113 mg/dl (65-105)
[2022-10-15] MEDS: HYDROcodone/acetaminophen (*CRX) 5-325 MG TABLET 1 TAB PO (17:38)
[2022-10-15 18:34] LABS: Hemoglobin A1C 7.7 % (<5.7)
[2022-10-15] MEDS: NAPROXEN SODIUM 220 MG TABLET PO (21:33)
[2022-10-15 21:45] LABS: Glucose Point of Care 160 mg/dl (65-105)
[2022-10-15] MEDS: traZODone HCL 50 MG TABLET 100 MG PO (23:13)
[2022-10-16] VITALS (12 sets, daily range): BP systolic 98–122; BP diastolic 63–83; PULSE 71–110; RESP 16–18; TEMP 35.7–36.6; O2SAT 93–98
[2022-10-16] MEDS: HYDROcodone/acetaminophen (*CRX) 5-325 MG TABLET 1 TAB PO ×2 (04:11→09:59)
[2022-10-16 06:00] LABS: Hematocrit 41.4 % (42.0-52.0); Hemoglobin 14.2 g/dL (14.0-18.0); Mean Corpuscular HGB Conc 34.3 g/dl (32-36); Mean Corpuscular Hemoglobin 29.5 pg (26-34); Mean Corpuscular Volume 86.1 fl (80-100); Mean Platelet Volume 9.1 fl (7.4-10.4); Platelet Count Result 373 k/mm3 (150-375); Red Blood Count 4.81 M/mm3 (4.6-6.20); Red Cell Distribution Width 13.2 % (11.5-14.5)
[2022-10-16 06:11] LABS: Anion Gap 12 mmol/L (8-16); Blood Urea Nitrogen 15 mg/dL (9-20); Carbon Dioxide 26 mmol/L (22-30); Chloride 97 mmol/L (98-107); Estimated CRCL calculation 61 ml/min; Estimated Glomerular Filt Rate > 60; Glucose 92 mg/dL (65-110); Magnesium 2.1 mg/dL (1.6-2.3); Potassium 3.3 mmol/L (3.4-5.0); Sodium 135 mmol/L (137-145)
[2022-10-16] MEDS: amLODIPine BESYLATE 5 MG TABLET 10 MG PO (08:32)
[2022-10-16] MEDS: PANTOPRAZOLE 40 MG TABLET PO (08:33)
[2022-10-16] MEDS: EMPAGLIFLOZIN 25 MG TABLET PO (08:33)
[2022-10-16] MEDS: ATORVASTATIN 40 MG TABLET PO (08:33)
[2022-10-16] MEDS: THIAMINE HCL 100 MG TABLET PO (08:33)
[2022-10-16] MEDS: FOLIC ACID 1 MG TABLET PO (08:33)
[2022-10-16] MEDS: buPROPion HCL XL (24 HR) 150 MG TABCR 450 MG PO (08:33)
[2022-10-16 08:41] LABS: Glucose Point of Care 97 mg/dl (65-105)
[2022-10-16] MEDS: POTASSIUM CHLORIDE 20 MEQ TABLET 40 MEQ PO (09:59)
[2022-10-16 12:17] LABS: Glucose Point of Care 201 mg/dl (65-105)
[2022-10-16] MEDS: INSULIN ASPART (*BKC) 100 UNITS/ML SUB-Q (12:35)
--- NOTE | 2022-10-16 15:28 | P.PNIM_ITS ---
Progress Note: A&P Assessment and Plan (1) Syncope: Code(s): R55 - Syncope and collapse Status: Acute Assessment and Plan: Patient reports episode of ?blacking out? in which he fell face forward to the ground and hit his head. Episode occurred at police station and was witnessed by police staff. * Etiology unclear. Vasovagal etiology is most likely. * May have been secondary to intoxication and electrolyte abnormalities. * Less likely consideration is seizure. Patient with no postictal period following episode * Head CT and cervical spine CT with no acute findings * EKG reviewed and patient is in sinus tachycardia. No obvious abnormalities on manager telemetry. Continue to monitor on telemetry * Consider outpatient manager telemetry. No arrhythmia on telemetry. * Echo shows no LV systolic or diastolic dysfunction. * Continue with rehydration - give additional 1 liter NS fluids. * Implement fall precautions * orthostatics negative however BP soft and patient appears to be on both Losartan/HCTZ and chlorthalidone medications that can worsening hyponatremia and dehydration. * TSH within normal limits. * No focal deficits to suggest ischemic stroke. * CT sinus with mild sinus disease and no facial fractures. (2) Alcohol abuse: Code(s): F10.10 - Alcohol abuse, uncomplicated Status: Acute Assessment and Plan: Patient reports drinking in two 24 oz beers every 2-3 days in states that he had two 24 oz beers last night around 10:00 p.m.. His alcohol level was 86 on presentation at 8:30 a.m. suspect that actual intake may be more than reported * continue CIWA protocol * Ativan as needed for CIWA >8. Monitor for withdrawal. * started on oral thiamine and folic acid supplementation (3) Chest pain: Code(s): R07.9 - Chest pain, unspecified Status: Acute Assessment and Plan: Patient with atypical chest pain presentation with onset following syncopal episode. Patient describes a chest pressure that radiates to the back and shoulder and occasionally worse is with moving his arm. He had associated nausea, vomiting, and sensation of heart racing. * Troponin negative x2. Repeat pending in 3 hours * EKG demonstrates sinus tachycardia with no additional abnormalities. No ST changes * ACS is less likely based on overall symptoms * D-dimer is negative * Blood pressures are stable * CXR negative. * Continue to monitor on telemetry * echocardiogram as below. * Resolved. likely musculoskeletal. (4) Nausea and vomiting: Code(s): R11.2 - Nausea with vomiting, unspecified Status: Acute Assessment and Plan: Patient with episode of emesis followed by syncope. Patient had a 2nd episode of emesis after he came to * May be related to alcohol intoxication * Symptoms have resolved at this time * lipase not elevated. * Continue with IV fluid rehydration * [place] diet (5) Electrolyte abnormality: Code(s): E87.8 - Other disorders of electrolyte and fluid balance, not elsewhere classified Status: Acute Assessment and Plan: * Hyponatremia: Sodium is 126. Last labs for comparison were 2 years ago. Suspect acute on chronic issue due to frequent beer intake worsened by nausea/vomiting. Continue with IV fluid rehydration. Repeat sodium 135 (from 128 yesterday afternoon). * Hypokalemia: Potassium is 2.8. received 40 mEq IV KCl on admission. K 3.3 today and given additional 60 mEQ PO. Hold HCTZ and chlorothalidone. * Hypochloremia: Chloride 87. Continue with IV fluid rehydration * Metabolic acidosis: Bicarb is 18 on adm
--- NOTE | 2022-10-16 15:28 | PM.IMPN ---
Progress Note: A&P Assessment and Plan (1) Syncope: Code(s): R55 - Syncope and collapse Status: Acute Assessment and Plan: Patient reports episode of ?blacking out? in which he fell face forward to the ground and hit his head. Episode occurred at police station and was witnessed by police staff. Etiology unclear. Vasovagal etiology is most likely. May have been secondary to intoxication and electrolyte abnormalities. Less likely consideration is seizure. Patient with no postictal period following episode Head CT and cervical spine CT with no acute findings EKG reviewed and patient is in sinus tachycardia. No obvious abnormalities on electronic device monitor. Continue to monitor on telemetry Consider outpatient electronic device monitor. No arrhythmia on telemetry. Echo shows no LV systolic or diastolic dysfunction. Continue with rehydration - give additional 1 liter NS fluids. Implement fall precautions orthostatics negative however BP soft and patient appears to be on both Losartan/HCTZ and chlorthalidone medications that can worsening hyponatremia and dehydration. TSH within normal limits. No focal deficits to suggest ischemic stroke. CT sinus with mild sinus disease and no facial fractures. (2) Alcohol abuse: Code(s): F10.10 - Alcohol abuse, uncomplicated Status: Acute Assessment and Plan: Patient reports drinking in two 24 oz beers every 2-3 days in states that he had two 24 oz beers last night around 10:00 p.m.. His alcohol level was 86 on presentation at 8:30 a.m. suspect that actual intake may be more than reported continue CIWA protocol Ativan as needed for CIWA >8. Monitor for withdrawal. started on oral thiamine and folic acid supplementation (3) Chest pain: Code(s): R07.9 - Chest pain, unspecified Status: Acute Assessment and Plan: Patient with atypical chest pain presentation with onset following syncopal episode. Patient describes a chest pressure that radiates to the back and shoulder and occasionally worse is with moving his arm. He had associated nausea, vomiting, and sensation of heart racing. Troponin negative x2. Repeat pending in 3 hours EKG demonstrates sinus tachycardia with no additional abnormalities. No ST changes ACS is less likely based on overall symptoms D-dimer is negative Blood pressures are stable CXR negative. Continue to monitor on telemetry echocardiogram as below. Resolved. likely musculoskeletal. (4) Nausea and vomiting: Code(s): R11.2 - Nausea with vomiting, unspecified Status: Acute Assessment and Plan: Patient with episode of emesis followed by syncope. Patient had a 2nd episode of emesis after he came to May be related to alcohol intoxication Symptoms have resolved at this time lipase not elevated. Continue with IV fluid rehydration [place] diet (5) Electrolyte abnormality: Code(s): E87.8 - Other disorders of electrolyte and fluid balance, not elsewhere classified Status: Acute Assessment and Plan: Hyponatremia: Sodium is 126. Last labs for comparison were 2 years ago. Suspect acute on chronic issue due to frequent beer intake worsened by nausea/vomiting. Continue with IV fluid rehydration. Repeat sodium 135 (from 128 yesterday afternoon). Hypokalemia: Potassium is 2.8. received 40 mEq IV KCl on admission. K 3.3 today and given additional 60 mEQ PO. Hold HCTZ and chlorothalidone. Hypochloremia: Chloride 87. Continue with IV fluid rehydration Metabolic acidosis: Bicarb is 18 on admission. Stable now. Elevated anion gap: Anion gap is 21. Most likely related to alcohol. Resolved with hydration. (6) Type 2 diabetes mellitus: Code(s): E11.9 - Type 2 diabetes mellitus without complications Status: Acute Assessment and Plan: Patient reports last A1c was around 8. Random blood sugar was 110 today Begin Accu-Cheks, sliding scale insu
[2022-10-16] MEDS: SODIUM CHLORIDE 0.9% IV 1,000 ML 75 ML IV CONT (15:50)
[2022-10-16 16:41] LABS: Glucose Point of Care 188 mg/dl (65-105)
[2022-10-16] MEDS: ACETAMINOPHEN 325 MG TABLET 650 MG PO ×2 (16:41→20:33)
[2022-10-16] MEDS: traZODone HCL 50 MG TABLET 100 MG PO (20:33)
[2022-10-16 21:54] LABS: Glucose Point of Care 265 mg/dl (65-105)
[2022-10-17] VITALS: PULSE 99
[2022-10-17] MEDS: ACETAMINOPHEN 325 MG TABLET 650 MG PO (00:44)
[2022-10-17 03:52] VITALS: BP 105/64; PULSE 90; RESP 18; TEMP 36.3; O2SAT 98
[2022-10-17 04:00] VITALS: PULSE 89
[2022-10-17 06:19] LABS: Alanine Aminotransferase 29 U/L (6-50); Albumin Level 4.2 g/dL (3.5-5.1); Alkaline Phosphatase 68 U/L (38-126); Anion Gap 7 mmol/L (8-16); Aspartate Amino Transferase 32 U/L (17-59); Blood Urea Nitrogen 12 mg/dL (9-20); Calcium 8.7 mg/dL (8.4-10.2); Carbon Dioxide 30 mmol/L (22-30); Chloride 102 mmol/L (98-107); Estimated CRCL calculation 67 ml/min; Estimated Glomerular Filt Rate > 60; Glucose 143 mg/dL (65-110); Potassium 3.5 mmol/L (3.4-5.0); Sodium 139 mmol/L (137-145)
[2022-10-17 08:00] VITALS: PULSE 104
[2022-10-17] MEDS: HYDROcodone/acetaminophen (*CRX) 5-325 MG TABLET 1 TAB PO (08:09)
[2022-10-17 08:43] LABS: Glucose Point of Care 141 mg/dl (65-105)
[2022-10-17] MEDS: EMPAGLIFLOZIN 25 MG TABLET PO (08:51)
[2022-10-17] MEDS: ATORVASTATIN 40 MG TABLET PO (08:51)
[2022-10-17] MEDS: THIAMINE HCL 100 MG TABLET PO (08:51)
[2022-10-17] MEDS: FOLIC ACID 1 MG TABLET PO (08:51)
[2022-10-17] MEDS: buPROPion HCL XL (24 HR) 150 MG TABCR 450 MG PO (08:51)
[2022-10-17] MEDS: PANTOPRAZOLE 40 MG TABLET PO (08:51)
--- NOTE | 2022-10-17 09:57 | PM.DS ---
DS: Admitting Diagnosis Discharge Date 10/17/2022 0957 Admitting Diagnosis Syncope and collapse Alcohol abuse, uncomplicated Chest pain, unspecified Nausea with vomiting, unspecified Electrolyte abnormality Type 2 diabetes mellitus without complications DS: Discharge Diagnosis Discharge Diagnosis (1) Syncope: Code(s): R55 - Syncope and collapse Status: Acute (2) Alcohol abuse: Code(s): F10.10 - Alcohol abuse, uncomplicated Status: Acute (3) Chest pain: Qualifiers: Chest pain type: precordial pain Qualified Code(s): R07.2 - Precordial pain Code(s): R07.9 - Chest pain, unspecified Status: Acute (4) Nausea and vomiting: Qualifiers: Vomiting type: bilious vomiting Qualified Code(s): R11.14 - Bilious vomiting Code(s): R11.2 - Nausea with vomiting, unspecified Status: Acute (5) Type 2 diabetes mellitus: Code(s): E11.9 - Type 2 diabetes mellitus without complications Status: Chronic (6) Dizziness: Code(s): R42 - Dizziness and giddiness Status: Acute (7) Hyponatremia: Code(s): E87.1 - Hypo-osmolality and hyponatremia Status: Acute (8) Hypokalemia: Code(s): E87.6 - Hypokalemia Status: Acute (9) Chronic pain: Code(s): G89.29 - Other chronic pain Status: Acute DS: Summary Hospital Course Reason for hospitalization: syncope Hospital Course: Francisco Garcia is a 51-year-old male with a history of type 2 diabetes mellitus, hypertension, hyperlipidemia, anxiety, depression, and chronic alcohol use who presented to the emergency department on 10/15/2022 from [facility] police station after a syncopal episode.?He was found to have hypokalemia, hyponatremia and he c/o chest pain in the ED. He was admitted for further evaluation and electrolyte replacement. He endorsed pain to his left frontal and nasal bridge pain. He thought this was secondary to hitting his head during his syncopal episode. 1. Syncope Patient reports episode of ?blacking out? in which he fell face forward to the ground and hit his head.? Episode occurred at police station and was witnessed by police staff. Etiology unclear.? Vasovagal versus orthostatic hypotension etiology is most likely.?May have been secondary to intoxication and electrolyte abnormalities. Less likely consideration is seizure.? Patient with no postictal period following episode Head CT and cervical spine CT with no acute findings EKG reviewed and patient is in sinus tachycardia.? No obvious abnormalities on property assessment monitor.? telemetry without ectopy or arrhythmia Echo shows no LV systolic or diastolic dysfunction. Hydrated with IV fluids. Implement fall precautions ?orthostatics negative however BP soft and patient appears to be on both Losartan/HCTZ and chlorthalidone medications that can worsening hyponatremia and dehydration. TSH within normal limits. No focal deficits to suggest ischemic stroke. CT sinus with mild sinus disease and no facial fractures. Stopped Losartan/HCTZ and chlorthalidone on discharge due to BP. Amlodipine continued. 2. Alcohol abuse. Patient reports drinking in two 24 oz beers every 2-3 days in states that he had two 24 oz beers last night around 10:00 p.m..? His alcohol level was 86 on presentation at 8:30 a.m. suspect that actual intake may be more than reported continue CIWA protocol Ativan as needed for CIWA >8. Monitor for withdrawal. started on oral thiamine and folic acid supplementation 3. Chest pain, noncardiac: Patient with atypical chest pain presentation with onset following syncopal episode.? Patient describes a chest pressure that radiates to the back and shoulder and occasionally worse is with moving his arm.? He had associated nausea, vomiting, and sensation of heart racing. Troponin negative x2.? Repeat pending in 3 hours EKG demonstrates sinus tachycardia with no additional abnormalities.? No ST
[2022-10-17 12:46] LABS: Glucose Point of Care 212 mg/dl (65-105)
== END 2022-10-17 15:00 | disposition home or self-care (01) ==
LOC: ANHED 09:55 → ANH3MEDSUR 12:10
PROVIDERS: Nurse Practitioner Family; Physician Assistant; Admitting Provider Family Medicine; Emergency Provider Emergency Medicine; PCP Physician Assistant; Visit Provider Student in an Organized Health Care Education/Training Program
DX: R55 Syncope and collapse (principal); R07.9 Chest pain, unspecified; S00.31XA Abrasion of nose, initial encounter; W19.XXXA Unspecified fall, initial encounter; R11.2 Nausea with vomiting, unspecified; F41.9 Anxiety disorder, unspecified; F32.A Depression, unspecified; E78.5 Hyperlipidemia, unspecified; Z20.822 Contact with and (suspected) exposure to COVID-19; I10 Essential (primary) hypertension; R00.0 Tachycardia, unspecified; E87.1 Hypo-osmolality and hyponatremia; E66.9 Obesity, unspecified; Z68.27 Body mass index [BMI] 27.0-27.9, adult; R94.31 Abnormal electrocardiogram [ECG] [EKG]; M47.812 Spondylosis without myelopathy or radiculopathy, cervical region; M43.22 Fusion of spine, cervical region; F17.210 Nicotine dependence, cigarettes, uncomplicated; F10.129 Alcohol abuse with intoxication, unspecified; Y90.4 Blood alcohol level of 80-99 mg/100 ml; F12.90 Cannabis use, unspecified, uncomplicated; Z79.899 Other long term (current) drug therapy
CPT/HCPCS: 36415; 70450; 70486; 71046; 72125; 80048; 80053; 80307; 82948; 83036; 83605; 83690; 83735; 84295; 84443; 84484; 85025; 85027; 85380; 87636; 93005; 96361; 96365; 96366; 96375; 99285; A9270; C8929; G0378; G0379; J1815; J3480; J7030; J7040; J7120; Q9957

== ENCOUNTER 2024-05-12 10:48 | Outpatient (CLI) | payer OTHER, SELFPAY ==
--- NOTE | ~2024-05-12 | XR_ITS ---
XR shoulder LT min 2V 05/12/2024 11:09 Indication: Left shoulder pain Procedure: 7 views left shoulder Comparison: 01/18/2015 Findings: There is a small ossific density lateral to the acromion, suspicious for avulsion fracture, age indeterminate. There is mild polyarticular osteoarthritis of the shoulder. No significant soft t issue abnormality. No foreign bodies. Impression: 1: Age-indeterminate avulsion fracture lateral margin of the acromion. 2: Mild polyarticular osteoarthritis. Reviewed, dictated and finalized at location B. Impression: 1: Age-indeterminate avulsion fracture lateral margin of the acromion. 2: Mild polyarticular osteoarthritis.
== END 2024-05-12 10:49 | disposition home or self-care (01) ==
PROVIDERS: PCP Physician Assistant; Visit Provider Physician Assistant
DX: M19.012 Primary osteoarthritis, left shoulder (principal)
CPT/HCPCS: 73030

== ENCOUNTER 2024-05-15 14:39 | Emergency (ER) | payer OTHER, SELFPAY ==
[2024-05-15 14:50] VITALS: BP 143/72; PULSE 100; RESP 16; TEMP 37.2; O2SAT 98
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
== END 2024-05-15 15:12 | disposition home or self-care (01) ==
PROVIDERS: Emergency Provider Nurse Practitioner Family; PCP Physician Assistant
DX: S42.122A Displaced fracture of acromial process, left shoulder, initial encounter for closed fracture (principal); V49.9XXA Car occupant (driver) (passenger) injured in unspecified traffic accident, initial encounter; E78.00 Pure hypercholesterolemia, unspecified; I10 Essential (primary) hypertension; E11.9 Type 2 diabetes mellitus without complications; F41.9 Anxiety disorder, unspecified; F32.A Depression, unspecified; F17.210 Nicotine dependence, cigarettes, uncomplicated
CPT/HCPCS: 99213; G0463

== ENCOUNTER 2024-05-26 11:49 | Outpatient (CLI) | payer OTHER, SELFPAY ==
--- NOTE | ~2024-05-26 | MR_ITS ---
EXAMINATION: MR shoulder LT wo con DATE: 05/26/2024 12:40 INDICATION: Left shoulder pain TECHNIQUE: Magnetic resonance imaging (MRI) of the left shoulder was performed without intravenous co ntrast. Sequences included axial PD-weighted FS FSE, coronal oblique PD-weighted FS FSE, coronal obli que T2-weighted FS FSE, sagittal PD-weighted FS FSE, and sagittal T1-weighted SE. COMPARISON: None. FINDINGS: Coracoacromial arch: The acromion undersurface is curved in morphology (type II). The coracoacromial ligament is normal. M ild acromioclavicular osteoarthritis. Rotator cuff: The supraspinatus, infraspinatus and teres minor tendons are normal. The subscapularis tendon is norm al. Normal rotator cuff muscle bulk and signal. Biceps tendon, glenoid labrum and glenohumeral cartilage: Long head of the biceps tendon is normal. There is a superior, anterior to posterior tear of the leslye oid labrum (SLAP tear) at the superior glenoid labrum beginning anteriorly at the 12:30 position exte nding posterior to the 11:00 position. Glenohumeral cartilage is normal. Fluid: Mild synovitis and of mild increased fluid in the long head biceps tendon sheath which is disproporti natalie to the physiologic amount fluid in the glenohumeral joint space consistent with mild bicipital tenosynovitis. No loose osteochondral bodies. No abnormal fluid signal in the subacromial/subdeltoid bursa to suggest bursitis. Bones: Indeterminate 8 mm intermediate signal intensity lesion at the junction of the acromion and the scapu lar spine. Otherwise normal marrow signal with no fracture. IMPRESSION: 1. Indeterminate 8 mm lesion at the junction of the acromion and scapular spine. No evident correlate on the radiographs for which differential would include both benign lesions as well as metastatic di sease. Consider whole body bone scan and left shoulder CT for further evaluation. 2. SLAP tear at the superior glenoid labrum. 3. Mild bicipital tenosynovitis. Reviewed, dictated and finalized at location B. IMPRESSION: 1. Indeterminate 8 mm lesion at the junction of the acromion and scapular spine . No evident correlate on the radiographs for which differential would include both benign lesions as well as metastatic disease. Consider whole body bone sca n and left shoulder CT for further evaluation. 2. SLAP tear at the superior glenoid labrum. 3. Mild bicipital tenosynovitis.
== END 2024-05-26 11:50 | disposition home or self-care (01) ==
PROVIDERS: PCP Physician Assistant; Visit Provider Physician Assistant
DX: M75.102 Unspecified rotator cuff tear or rupture of left shoulder, not specified as traumatic (principal); M75.22 Bicipital tendinitis, left shoulder
CPT/HCPCS: 73221

== ENCOUNTER 2024-06-16 14:50 | Outpatient (CLI) | payer OTHER, SELFPAY ==
--- NOTE | ~2024-06-16 | CT_ITS ---
CT scan of the left shoulder CLINICAL HISTORY: Other specified disorder of bone TECHNIQUE: Following intravenous administration of 100 cc of Omnipaque 350 contrast material, axial i maging of the left shoulder was performed. Sagittal and coronal reformatted images were constructed. Dose reduction technique was used on this scan by utilizing automated exposure control and iterative reconstruction technique. The dose-length product (DLP) was 416.33 mGy-cm. Comparison made with MRI dated 05/26/2024 Findings: At the junction of the scapular spine and acromion, there is a 7 mm circumscribed lytic les ion (series 3 image 26, series 601 image 70), with narrow zone of transition and thin sclerotic katie n. No abscess or soft tissue mass or periosteal reaction. Suggestion of a faint central hyperdensity within the lesion. There is mild AC joint degenerative change. Glenohumeral joint intact. No joint effusion evident. Visualized musculature is unremarkable. No soft tissue mass evident. Visualized left lung demonstrate s discoid left basilar atelectasis or scarring. IMPRESSION: 7 mm lesion at the junction of the scapular spine and acromion, as detailed above. Imaging characteri stics are most compatible with a benign lesion, though precise etiology indeterminate. Osteoid osteom a is a potential consideration, though there is no cortical thickening which is typically associated with this diagnosis. Correlate clinically as to whether there is felt to be pain or symptomatology re ferable to this lesion. If lesion is clinically asymptomatic, then consider rib management would prob ably be indicated given small size and lack of aggressive imaging features. Bone scan could be consid ered to assess for activity/uptake. Reviewed, dictated and finalized at location . IMPRESSION: 7 mm lesion at the junction of the scapular spine and acromion, as detailed abo ve. Imaging characteristics are most compatible with a benign lesion, though pr ecise etiology indeterminate. Osteoid osteoma is a potential consideration, tho ugh there is no cortical thickening which is typically associated with this juan jose gnosis. Correlate clinically as to whether there is felt to be pain or symptoma tology referable to this lesion. If lesion is clinically asymptomatic, then con tree scout rib management would probably be indicated given small size and lack of a ggressive imaging features. Bone scan could be considered to assess for activit y/uptake.
[2024-06-16 15:13] LABS: Estimated Glomerular Filt Rate > 60
== END 2024-06-16 14:51 | disposition home or self-care (01) ==
LOC: ANHIMG 14:52
PROVIDERS: PCP Physician Assistant; Visit Provider Physician Assistant
DX: M75.82 Other shoulder lesions, left shoulder (principal); M89.8X1 Other specified disorders of bone, shoulder
CPT/HCPCS: 73201; Q9967

== ENCOUNTER 2024-07-14 14:30 | Outpatient (RCR) | payer OTHER, SELFPAY ==
--- NOTE | 2024-05-03 12:09 | OPREHPOC ---
Outpatient Therapy Plan of Care This is a Multidisciplinary Plan of Care that may contain components documented by all disciplines (PT, OT, and ST.) PT Problem 1 PT Problem #1 Knowledge Deficit PT Goal 1 Goal / Goal Update [place] with HEP PT Problem 2 PT Problem #2 Pain PT Goal 1 Goal / Goal Update Report no pain greater than 2/10 with active lift to 90 degrees PT Problem 3 PT Problem #3 Impaired Range of Motion PT Goal 1 Goal / Goal Update Achieve 170 degrees of passive shoulder flexion for functional reach improvement Target Visit 8 PT Goal 2 Goal / Goal Update Achieve 80 degrees shoulder external rotation for capsular mobility and self care Target Visit 10 PT Problem 4 PT Problem #4 Impaired Strength PT Goal 1 Goal / Goal Update Improve L shoulder external rotation strength to 4 +/5 to improve capsular stabilization for self care and ADL performance Target Visit 8
--- NOTE | 2024-05-03 12:09 | PTOPEVAL1 ---
Assessment and note entered by Bernardino Callejas, PT Evaluation Information Assessment Status Evaluation ICD-10 Condition Codes (PT) M25.512 Onset January 2024 Subjective Information History of spinal fusion in 2010 at C6-C7. Reports that he has numbness and tingling from fusion at a baseline. Pain is now more severe in the shoulder and he is having trouble lifting his arm over his head. Has difficulty opening doors and gripping. Pain is worse at night hand he has to lay on hos right side or sit up. HE feel he has weakness throughout the entire arm and he is dropping things. 4th and 5th digits are numb. Reported Pain Level Pain Score 2: Self Report Assessment PT Clinical Summary Patient presents with pain and loss of shoulder ROM at this time. Strength greatest limitation by pain at this time and empty end feel with motion. Will benefit form skilled therapy to address deficits for functional improvement and overall functional return. Plan of Care Interventions Electrical Stimulation,Manual Therapy,Neuro Re- education,Therapeutic Activities,Therapeutic Exercise PT Services Indicated Yes Treatment Frequency and 2x/week for 8 visits Duration These treatments will address the objective and functional deficits as defined above. The patient will be advanced safely and appropriately in order for the patient to progress towards his/her prior level of function. Additional exercises will be introduced and as well as a comprehensive home exercise program upon discharge, if needed, ?to ensure carryover of functional gains achieved in the clinic. This treatment plan has been reviewed and agreement upon by the patient.
--- NOTE | 2024-05-18 13:38 | PCPTNOTE ---
Patient contacted clinic this date stating that he received an x-ray and avulsion fracture was found in the shoulder. He reports that at this point all baseline exercises are causing him pain and the pain is lingering with time. Was recommended to receive further imaging in form of an MRI but needed to complete therapy at this time in order to be approved. Patient has attended 2 therapy sessions and has had difficulty with baseline passive motion due to increased pain and empty end feel with painful arc of motion. At this point I believe that further imaging (MRI) would be indicated based on patients limited tolerance for simple motion activity, significant weakness, and presence of avulsion fracture on x-ray results. Please feel free to contact me with any questions related to Mr. Garcia's rehabilitative care. Thank you. Bernardino Callejas, JIMENEZ [facility] [phone]
--- NOTE | 2024-06-01 14:19 | PCPTNOTE ---
No call no show, reason unknown. AKFabiola
--- NOTE | 2024-06-10 13:20 | OPREHPOC ---
Outpatient Therapy Plan of Care This is a Multidisciplinary Plan of Care that may contain components documented by all disciplines (PT, OT, and ST.) PT Problem 1 PT Problem #1 Knowledge Deficit PT Goal 1 Goal / Goal Update [place] with HEP Progress Met PT Goal 2 Goal / Goal Update 06-10-24 progress met goal continue towards goal to progress education/ HEP Target Visit 13 PT Problem 2 PT Problem #2 Pain PT Goal 1 Goal / Goal Update Report no pain greater than 2/10 with active lift to 90 degrees Progress Not Met PT Goal 2 Goal / Goal Update 06-10-24 progress goal not met NEW GOAL: 1* pain rating at worst of 6/10 with shoulder motions Target Visit 13 PT Problem 3 PT Problem #3 Impaired Range of Motion PT Goal 1 Goal / Goal Update Achieve 170 degrees of passive shoulder flexion for functional reach improvement 06-10-24 progress goal not met NEW Goal: * increase shoulder flexion to 120' for improved forward reaching Target Visit 13 Progress Not Met PT Goal 2 Goal / Goal Update Achieve 80 degrees shoulder external rotation for capsular mobility and self care 06-10-24 progress goal not met NEW GOAL: * pt reach to back of head for self care * pt reach to behind back to waist Target Visit 13 PT Problem 4 PT Problem #4 Impaired Strength PT Goal 1 Goal / Goal Update Improve L shoulder external rotation strength to 4 +/5 to improve capsular stabilization for self care and ADL performance Target Visit 8 Progress Not Met PT Goal 2 Goal / Goal Update 06-10-24 progress goal not met continue towards goal Target Visit 13
--- NOTE | 2024-06-10 13:20 | PTOPPROG ---
Assessment and note entered by Thi Calle, PT Progress Report Assessment Status Progress ICD-10 Condition Codes (PT) M25.512 Onset January [address]- got an injection in shoulder and a new prescription; return to him in 4 weeks to recheck shoulder, he wants me to continue with therapy. shoulder is really sore from the dr moving it; PAIN: range in the past week: 6-8/10---constant pain increase pain with use of arm decrease pain: rest, heat, ice with sleeping awaken 4-5x/night due to shoulder pain Assessment PT Clinical Summary Jonnie has received 7 PT sessions. Compared to the initial evaluation: pain from 1-8 10 to 6-810; decreased L shoulder active ROM in all ranges, with pain reported with all motions. Self assessment with QUICK DASH rating from 82% to 86% limitation in activity level. Education for HEP and pain control. The goals were partially achieved. He received an injection and new meds from today. Continue PT treatment. Plan of Care Interventions Electrical Stimulation,Hot Pack/Cold Pack,Manual Therapy,Neuro Re-education,Patient/Caregiver Education,Therapeutic Activities,Therapeutic Exercise,Ultrasound,Other Other Interventions taping PT Services Indicated Yes Treatment Frequency and 1-2x/wk for 6 visits Duration These treatments will address the objective and functional deficits as defined above. The patient will be advanced safely and appropriately in order for the patient to progress towards his/her prior level of function. Additional exercises will be introduced and as well as a comprehensive home exercise program upon discharge, if needed, ?to ensure carryover of functional gains achieved in the clinic. This treatment plan has been reviewed and agreement upon by the patient.
--- NOTE | 2024-06-10 13:23 | PCPTNOTE ---
pt was 25 min late for today's reevaluation appt; he had the incorrect time for the appt.
--- NOTE | 2024-07-02 11:16 | PCPTNOTE ---
Pt canceled stating he was unable to make it.
--- NOTE | 2024-07-16 14:12 | PCPTNOTE ---
Pt canceled today due to not having a ride.
--- NOTE | 2024-07-19 15:19 | PCPTNOTE ---
This treatment is being continued on visit number [id number] Please see documentation on both accounts to view progress. Completed interventions, outcomes, and problems have been marked as Inactive to facilitate the copying of the Care plan routine for recurring accounts.
== END 2024-07-19 14:57 | disposition home or self-care (01) ==
LOC: ANHPT 14:30
PROVIDERS: PCP Physician Assistant; Visit Provider Physician Assistant
DX: M25.512 Pain in left shoulder (principal)
CPT/HCPCS: 97014; 97110; 97140; 97161; 97530; G0283

== ENCOUNTER 2024-07-29 13:52 | Emergency (ER) | payer OTHER, SELFPAY ==
[2024-07-29 13:58] VITALS: BP 92/74; PULSE 114; RESP 16; TEMP 36.1; O2SAT 99
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
== END 2024-07-29 16:06 | disposition home or self-care (01) ==
PROVIDERS: Emergency Provider Nurse Practitioner Family; PCP Physician Assistant
DX: M54.2 Cervicalgia (principal); F17.210 Nicotine dependence, cigarettes, uncomplicated; E78.00 Pure hypercholesterolemia, unspecified; I10 Essential (primary) hypertension; F41.9 Anxiety disorder, unspecified; E11.9 Type 2 diabetes mellitus without complications; F32.A Depression, unspecified
CPT/HCPCS: 99212; G0463

== ENCOUNTER 2024-08-16 11:54 | Outpatient (CLI) | payer OTHER, SELFPAY ==
--- NOTE | ~2024-08-16 | XR_ITS ---
3 VIEWS LUMBAR SPINE Ordering provider: Rosalinda Del Rio History: . FALL 2 WEEKS AGO BILATERAL SHOULDER AND KNEE PAIN . Comparison: None. FINDINGS: VERTEBRAL BODIES:Lumbarization of S1 is noted. No visible fracture or subluxation. Chronic loss of v olume anteriorly seen in L1. DISK SPACES: Normal. SOFT TISSUES: Atherosclerotic changes of the aorta. IMPRESSION: No acute osseous abnormality lumbar spine. Reviewed, dictated and finalized at location A. ER CUTTER
--- NOTE | ~2024-08-16 | XR_ITS ---
Cervical Spine: AP, lateral, open-mouth views Clinical History: Pain Findings: There is straightening of the normal cervical lordosis. There is anterior and interbody fus ion from C5 to C7. There is severe degenerative disc narrowing at C4-C5 and C7-T1. There is grade 1 a nterolisthesis of C7 over T1. Large anterior ossified present arising from the C4 vertebral body. The re is moderate facet arthropathy in the cervical spine. Pre-vertebral soft tissues are unremarkable. Impression: Fusion from C5 to C7, as above. Moderate to advanced degenerative spondylosis in the remainder of the cervical spine, as above. Reviewed, dictated and finalized at location M. ISSARY SUPERINTENDENT Impression: Fusion from C5 to C7, as above. Moderate to advanced degenerative spondylosis in the remainder of the cervical spine, as above.
--- NOTE | ~2024-08-16 | XR_ITS ---
Thoracic spine: Clinical Indication: Back pain AP and lateral views were performed. No fracture is seen. There is normal alignment of the vertebrae. The intervertebral disc spaces appe ar normal. Paravertebral soft tissues appear normal. Impression: No significant abnormalities noted. Reviewed, dictated and finalized at [facility]. [employer] Impression: No significant abnormalities noted.
== END 2024-08-16 11:55 | disposition home or self-care (01) ==
PROVIDERS: PCP Physician Assistant
DX: M47.812 Spondylosis without myelopathy or radiculopathy, cervical region (principal); M43.22 Fusion of spine, cervical region; M54.50 Low back pain, unspecified
CPT/HCPCS: 72050; 72072; 72100

== ENCOUNTER 2024-11-04 17:34 | Emergency (ER) | payer OTHER, SELFPAY ==
[2024-11-04 17:43] VITALS: BP 96/71; PULSE 98; RESP 16; TEMP 36.1; O2SAT 100
--- NOTE | 2024-11-04 17:53 | ED.DENTAL ---
HPI - Dental/Oral General Chief complaint: Dental/Oral Stated complaint: Dental/Rash Mouth Pain Time Seen by Provider: 11/04/24 17:53 Source: patient, RN notes reviewed and old records reviewed Mode of arrival: ambulatory Limitations: no limitations History of Present Illness HPI Narrative: 53-year-old male presents to the [facility] with left lower dental pain for approximately 3 weeks. Also has a white rash to the inside of his mouth for several days. No treatment prior to arrival Treatment prior to arrival: none Related Data Home Medications ?Medication ?Instructions ?Recorded ?Confirmed ?Last Taken ?Type bupropion HCl 150 mg 24 hr tablet, 450 mg PO DAILY 08/15/19 07/29/24 Unknown History extended release empagliflozin 25 mg tablet 25 mg PO DAILY 10/26/21 07/29/24 Unknown History (Jardiance) trazodone 100 mg tablet 100 mg PO BID 10/26/21 07/29/24 Unknown History gabapentin 300 mg capsule 300 mg PO TID 05/15/24 07/29/24 Unknown History hydroxyzine HCl 25 mg tablet 25 mg PO HS 05/15/24 07/29/24 Unknown History amlodipine 10 mg tablet 10 mg PO QHS 11/04/24 11/04/24 Unknown History chlorthalidone 50 mg tablet 50 mg PO .QD 11/04/24 11/04/24 Unknown History fluoxetine 40 mg capsule 40 mg PO QPM 11/04/24 11/04/24 Unknown History omeprazole 20 mg capsule,delayed 20 mg PO .QD 11/04/24 11/04/24 Unknown History release Allergies Allergy/AdvReac Type Severity Reaction Status Date / Time dulaglutide (From [facility]) AdvReac Intermediate Confusion Verified 11/04/24 17:48 Review of Systems Review of Systems: All systems reviewed & are unremarkable except as noted in HPI and below Constitutional: Constitutional: Reports no additional constitutional complaints ENT: Reports as per HPI, Reports dental pain and Reports other ( rash in mouth rash, white lesions) Cardiovascular: Cardiovascular: Reports no additional cardiovascular complaints, Denies chest pain and Denies dyspnea Respiratory: Respiratory: Reports no additional respiratory complaints, Denies chest congestion, Denies cough and Denies dyspnea Musculoskeletal: Musculoskeletal: Reports no additional musculoskeletal complaints Integumentary/Breasts: Skin/Breast: Reports system reviewed and no additional complaints, except as docu PMFSH Past Medical History Medical History Type 2 diabetes mellitus Anxiety and depression High cholesterol History of high blood pressure Chronic pain Due to history of cervical spine fusion, previously seeing pain management Surgical History Surgical History History of appendectomy Hx of fusion of cervical spine Family History Family History Father Family history of elevated blood lipids Family history of diabetes mellitus in first degree relative Grandparent Cerebrovascular accident Other Diabetes mellitus Hypertension Social History Social History Social History: Patient lives at home. He is independent with his daily activities. He designates his son, Joaquin, as his surrogate decision maker. He is a full code. His PCP is Danna De La Cruz PA-C Smoking packs per day: 0.25 Smoking cigarettes per day: 5.0 Smoking status: Current some day smoker Second hand tobacco smoke exposure: Yes Alcohol intake: former Drinks per week: 28 Alcohol use details: Two 24 oz beers every 2 days Substance use: former Substance use type: does not use Do You Feel Safe in your Home?: Yes Lack of Transportation: YES Lack of Food: Never True Current Housing: I Have Housing Concerned About Future Housing: No Difficulty Paying Gas/Electric Bills: No Difficulty Paying for Meds: No Currently Unemployed: No Education: Trade/Vocational Certificate Difficulty w/ Childcare or Family Care: No Living arrangements: alone Occupation/Education: unemployed Additional occupation/education comments: SSI Gender identity (if verbalized by the patient): Male Spiritual care concerns: No Comments At the time of my signature, I reviewed and agree with the nursing past medical, surgical, social, and family history. There is no relevant family history pertinent to the patient complaint. Exam Const: General: cooperative, healthy appearing, comfortable, no acute distress, well developed, alert and well nourished Nutritional Appearance: well nourished Orientation/consciousness: patient oriented x3 Limitations: no limitations HENMT: Head: normal to inspection Ears: hearing grossly normal bilaterally, external ears normal, TM's normal bilaterally, EAC's normal, mastoids normal and no periauricular adenopathy Mouth: Yes lip normal, Yes moist mucous membranes and Yes Abnormal oral and palatal mucosa present white patches Teeth and gingiva: abnormal tooth and associated gingiva ( left lower gingiva posterior, swelling, poor dentition) and poor dentition Throat: posterior oropharynx normal, uvula midline and no uvular edema Eyes: General: appearance normal, both eyes and all related structures Alignment and Position: alignment normal Neck: Neck: normal visual inspection, full ROM, no lymphadenopathy and no meningeal signs Chest: Chest palpation & inspection: normal inspection of the chest Resp: Effort & Inspection: normal respiratory effort and able to speak in complete sentences Cardio: Rate: regular rate Skin: General skin exam: normal color and no rashes or lesions noted Neuro: General: patient oriented x3, gait normal, moves all extremities and no meningeal signs Cognition (Neuro): normal cognition Speech: normal speech Gait exam (Neuro): Normal gait present Extrem: General: normal to inspection, full ROM, capillary refill normal and normal gait Psych: Appearance: grossly normal and well kempt Mental Status: mental status grossly normal Speech and movement: Normal speech and movement present and Clear speech present Affect: normal affect Attitude: cooperative Course Course Level of Care: Express Care Visit Vital Signs Vital signs: Vital Signs Temperature 97.0 F L 11/04/24 17:43 Pulse Rate 98 11/04/24 17:43 Respiratory Rate 16 11/04/24 17:43 Blood Pressure 96/71 L 11/04/24 17:43 Pulse Oximetry 100 11/04/24 17:43 Oxygen Delivery Room Air 11/04/24 17:43 Temperature 97.0 F L 11/04/24 17:43 Pulse Rate 98 11/04/24 17:43 Respiratory Rate 16 11/04/24 17:43 Blood Pressure 96/71 L 11/04/24 17:43 Pulse Oximetry 100 11/04/24 17:43 Oxygen Delivery Room Air 11/04/24 17:43 Reviewed MDM - Dental/Oral MDM Narrative Medical decision making narrative: patient sitting in exam room. Nontoxic, vitals stable. Patient in no acute distress. Patient with poor dentition, swelling to the posterior gingiva left lower. Significant rash noted to mouth, white patches to the roof, tongue and bilateral cheeks. Patient appropriate for outpatient treatment with close follow-up. Discharge instructions reviewed with patient, as well as provided in writing per nursing staff. The instructions also include specific and strict return/GO TO THE ER as well as f/u information. All questions have been answered, and the patient deny any further questions with discharge and discharge plan. Some parts of this dictation were generated by voice recognition software and may contain typographical and/or grammatical inaccuracies. Differential Diagnosis Differential diagnosis: Likely gingival abscess, dental caries, toothache, dental abscess, fracture of tooth, aphthous ulcer and other (Thrush,) Critical Care Time Critical Care Time Critical Care Time: No Discharge Plan Discharge Clinical Impression: Toothache, Thrush Patient Disposition: Home, Self-Care Condition: Stable Instructions: Antibiotic Form, Oral Candidiasis (ED), Toothache (ED) Additional Instructions: Finish the entire course of antibiotics & use the mouthwash. After every time you eat be sure to use salt water rinses. Apply ice to face to help with pain. Take Tylenol alternating with Motrin as needed for pain. You can alternate every 4 hours You need to follow-up with a dental provider as soon as possible for further evaluation and treatment. A list of dental providers has been given to you Follow up with a Primary Care Provider (PCP) about medical needs. A PCP can help keep you healthy by preventive medicine and screening. Go to the ER for New or worsening symptoms. Patient Language: Icelandic Prescriptions: New amoxicillin 875 mg tablet 875 mg PO Q12H Qty: 20 0RF nystatin 100,000 unit/mL suspension 5 ml PO QID 7 Days Qty: 140 0RF Rx Instructions: swish and swallow No Action bupropion HCl 150 mg tablet extended release 24 hr 450 mg PO DAILY Jardiance 25 mg tablet 25 mg PO DAILY trazodone 100 mg tablet 100 mg PO BID gabapentin 300 mg capsule 300 mg PO TID hydroxyzine HCl 25 mg tablet 25 mg PO HS naproxen 500 mg tablet 500 mg PO BID 14 Days Qty: 28 0RF fluoxetine 40 mg capsule 40 mg PO QPM omeprazole 20 mg capsule,delayed release(DR/EC) 20 mg PO .QD chlorthalidone 50 mg tablet 50 mg PO .QD amlodipine 10 mg tablet 10 mg PO QHS Follow-up/Referrals: Selena,FABIENNE Clay [Primary Care Provider] - 2 Weeks ([facility] follow up) Stand Alone Forms: Work/School Release IP Time of Disposition: 17:59
== END 2024-11-04 18:00 | disposition home or self-care (01) ==
PROVIDERS: Emergency Provider Nurse Practitioner; PCP Physician Assistant
DX: K08.89 Other specified disorders of teeth and supporting structures (principal); B37.0 Candidal stomatitis; E11.9 Type 2 diabetes mellitus without complications; Z79.84 Long term (current) use of oral hypoglycemic drugs; E78.00 Pure hypercholesterolemia, unspecified; I10 Essential (primary) hypertension; F41.9 Anxiety disorder, unspecified; F32.A Depression, unspecified; F17.210 Nicotine dependence, cigarettes, uncomplicated
CPT/HCPCS: 99213; G0463